=== PATIENT | female | born 1990 | race African-American/Black ===

== ENCOUNTER 2016-11-26 22:34 | Inpatient (IN) ==
[2016-11-26 23:39] LABS: URINE SOURCE VOIDED
[2016-11-26 23:43] LABS: BILIRUBIN URINE NEGATIVE (NEGATIVE); BLOOD URINE 1+ (NEGATIVE); CLARITY SL. CLOUDY (CLEAR); COLOR YELLOW; GLUCOSE URINE NEGATIVE (NEGATIVE); LEUKOCYTES URINE TRACE (NEGATIVE); NITRITE URINE NEGATIVE (NEGATIVE); PH URINE 6.5; PROTEIN URINE 2+(100 mg/dL) mg/dL (NEGATIVE); UROBILINOGEN URINE 4+(12 mg/dL)
[2016-11-27 00:39] LABS: MANUAL DIFF NEEDED? NO
[2016-11-27 00:43] LABS: BASO% 0.1 % (0.0-0.8); EOS# 0.06 X1000 (0.0-0.7); EOS% 0.6 % (0.0-10.0); HEMATOCRIT 33.5 % (37.0-47.0); HEMOGLOBIN 11.7 g/dL (12.0-16.0); IMM GRAN# 0.07 X1000 (0.0-0.04); IMM GRAN% 0.7 % (0.0-0.5); LYMPH# 0.75 X1000 (1.2-3.4); LYMPH% 7.7 % (20.5-51.1); MCH 29.3 PG (27-31); MCHC 34.9 g/dL (33-37); MCV 83.8 FL (81-99); MONO# 0.82 X1000 (0.11-0.59); MONO% 8.4 % (1.7-9.3); MPV 8.7 FL (7.4-10.4); NEUT% 82.5 % (42.2-75.2); PLT 361 X1000 (130-400)
[2016-11-27 01:04] LABS: AGAP 14; ALBUMIN 3.2 g/dL (3.5-5.0); ALKALINE PHOSPHATASE 108 U/L (32-104); BUN 9 mg/dL (8-22); CALCIUM 8.3 mg/dL (8.8-10.2); CHLORIDE 99 mmol/L (98-107); COSMO 266; GOT 11 U/L (10-30); GPT 5 U/L (10-36); SODIUM 133 mmol/L (136-145); TCO2 21 mmol/L (25-35); TOTAL PROTEIN 6.4 g/dL (6.3-8.3)
[2016-11-27 01:22] LABS: UR AMPHETAMINES QUAL NONE DETECTED (NONE DETECT); UR BARBITUATES QUAL NONE DETECTED (NONE DETECT); UR BENZODIAZEPIN QUAL NONE DETECTED (NONE DETECT); UR CANNABINOIDS QUAL NONE DETECTED (NONE DETECT); UR COCAINE QUAL NONE DETECTED (NONE DETECT); UR MDMA QUAL NONE DETECTED (NONE DETECT); UR METHADONE QUAL NONE DETECTED (NONE DETECT); UR METHAMPHETAMINE QUAL NONE DETECTED (NONE DETECT); UR OPIATES QUAL NONE DETECTED (NONE DETECT); UR OXYCODONE QUAL NONE DETECTED (NONE DETECT); UR PCP QUAL NONE DETECTED (NONE DETECT); UR TCA QUAL NONE DETECTED (NONE DETECT)
[2016-11-27] MEDS ORDERED: LR 1,000 ML IV ONE (02:05)
[2016-11-27] MEDS ORDERED: STADOL IV PRN (02:37)
[2016-11-27] MEDS ORDERED: STADOL IV ONE (02:37)
[2016-11-27] MEDS ORDERED: PEPCID PO ONE (05:24)
[2016-11-27] MEDS: STADOL IV PRN ×5 (08:26→23:33)
[2016-11-27] MEDS: MAALOX PLUS LIQUID PO PRN ×3 (08:30→17:13)
[2016-11-27] MEDS ORDERED: SYNTHROID PO ONE ×2 (09:14→09:30)
[2016-11-27] MEDS: TRANDATE PO SCH ×2 (09:16→20:41)
[2016-11-27] MEDS: LR 1,000 ML IV SCH (19:43)
[2016-11-27] MEDS: DILAUDID PO PRN (19:43)
[2016-11-27 20:07] LABS: MANUAL DIFF NEEDED? NO
[2016-11-27 20:27] LABS: BASO% 0.1 % (0.0-0.8); EOS# 0.02 X1000 (0.0-0.7); EOS% 0.2 % (0.0-10.0); HEMATOCRIT 35.5 % (37.0-47.0); HEMOGLOBIN 12.3 g/dL (12.0-16.0); IMM GRAN# 0.05 X1000 (0.0-0.04); IMM GRAN% 0.5 % (0.0-0.5); LYMPH# 0.67 X1000 (1.2-3.4); LYMPH% 6.4 % (20.5-51.1); MCH 29.3 PG (27-31); MCHC 34.6 g/dL (33-37); MCV 84.5 FL (81-99); MONO# 1.08 X1000 (0.11-0.59); MONO% 10.4 % (1.7-9.3); NEUT% 82.4 % (42.2-75.2); PLT 406 X1000 (130-400)
[2016-11-28] MEDS: STADOL IV PRN ×3 (02:20→07:08)
[2016-11-28 03:34] LABS: PROTEIN CREAT RATIO 0.3; UR CREAT RANDOM 109.6 mg/dL (11-20); UR PROT RANDOM 28.1 mg/dL
[2016-11-28 03:37] LABS: UR PROTEIN 28.5 mg/dL
[2016-11-28 03:45] LABS: UR CREATININE 109.6 mg/dL (11-20); UR CREATININE TOTAL 1315.2 mg/24 (600-1600)
[2016-11-28] MEDS: LR 1,000 ML IV SCH ×3 (04:00→11:58)
[2016-11-28] MEDS: TRANDATE PO SCH ×2 (08:35→21:06)
[2016-11-28] MEDS: SYNTHROID PO SCH ×2 (08:35)
[2016-11-28] MEDS ORDERED: REGLAN PO ONE (09:40)
[2016-11-28] MEDS ORDERED: LR 1,000 ML IV SCH (09:40)
[2016-11-28] MEDS ORDERED: AMPICILLIN 2 GM/NS 2 GM/100 ML IVPB IV ONE (09:43)
[2016-11-28] MEDS ORDERED: SODIUM CHLORIDE 0.9% INJ ONE (09:50)
[2016-11-28] MEDS ORDERED: FENTANYL-BUPIV-NS 2 MCG-0.1% 200 ML EPIDURAL PRN (09:51)
[2016-11-28] MEDS ORDERED: XYLOCAINE-MPF 1% 5 ML ONE (09:53)
[2016-11-28] MEDS ORDERED: FENTANYL-BUPIV-NS 2 MCG-0.1% 200 ML ONE (09:56)
[2016-11-28] MEDS ORDERED: XYLOCAINE-MPF 1% INJ ONE (10:00)
[2016-11-28] MEDS ORDERED: AMPICILLIN 1 GM/NS 1 GM/50 ML IVPB IV SCH (13:00)
[2016-11-28] MEDS ORDERED: ZOFRAN ONE (13:19)
[2016-11-28] MEDS ORDERED: SENSORCAINE-MPF 0.5%/EPI 1:200,000 ONE ×2 (13:19→14:43)
[2016-11-28] MEDS ORDERED: NESACAINE-MPF 3% ONE (13:19)
[2016-11-28] MEDS ORDERED: DURAMORPH ONE (13:19)
[2016-11-28] MEDS ORDERED: BICITRA PO ONE (13:30)
[2016-11-28] MEDS ORDERED: PEPCID IV ONE (13:30)
[2016-11-28] MEDS ORDERED: VERSED ONE (14:43)
[2016-11-28] MEDS ORDERED: PITOCIN ONE (14:43)
--- NOTE | 2016-11-28 14:44 | HISTORY AND PHYSICAL ---
CHIEF COMPLAINT: Abdominal pain. HISTORY OF PRESENT ILLNESS: This is a 26-year-old, with intrauterine at 35+ 4 weeks by first-trimester ultrasound, EDC 12/28/2016 who presented to [place] with complaints abdominal pain. The patient was placed on continuous electronic monitoring and contractions were negative at time of admission. Patient is found to be closed, thick and high at that time. Blood pressure is however noted to be elevated with values as high as systolic of 190s , multiple severe range values were noted greater than 4 hours apart. The patient denies headaches, vision changes, right upper quadrant pain or shortness of breath. Twenty-four urine was initiated on admission as well as routine labs which were within normal limits for with the exception of 24 hour urine revealing proteinuria at 342mg. Patient's care has been complicated by hypothyroidism as well as a fibroid uterus which progressed throughout . The patient has missed a number of return OB visits with her last visit at 28 weeks on October 07. Ultrasound performed on August 31 revealed anterior fibroid measuring 17.1 x 9.8 x 9.7 cm with 2 additional fibroids noted to be 4.8 cm and 2.3 cm. Patient has good movement. No loss of fluid. No vaginal bleeding. BPP performed by myself yesterday evening was 8 out of 8 in less than 5 minutes. OBSTETRICAL HISTORY: G1 current. FORKLIFT PICKER HISTORY: Denies sexually transmitted infections or abnormal Paps. PAST MEDICAL HISTORY: Significant for hyperthyroidism with subsequent thyroidectomy and postoperative hypothyroidism. The patient denies history of chronic hypertension. PAST SURGICAL HISTORY: Significant for breast reduction as well as thyroidectomy and left knee surgery. MEDICATIONS: Synthroid 175 mcg daily and vitamins. ALLERGIES: No known drug allergies. SOCIAL: Past tobacco user however quit when she found out she was . Denies alcohol or illicit drug use. FAMILY HISTORY: Significant for breast cancer in a paternal aunt. Diabetes in both her mother and father. Hypertension in her mother and father. REVIEW OF SYSTEMS: Otherwise negative. PHYSICAL EXAMINATION: GENERAL: Well-developed, well-nourished, female, in no acute distress. HEENT: Pupils equal, round, react to light. Extraocular muscle intact. CHEST: Clear to auscultation bilaterally. CV: Regular rate and rhythm. No murmurs, rubs, or gallops. ABDOMEN: Soft, nontender. Palpable large fibroid in the left anterior uterus. EXTREMITIES: No clubbing, cyanosis, or edema. SKIN: No focal lesions. NEURO: No focal deficits. DTRs 2+. ASSESSMENT AND PLAN: 1. Intrauterine at 35+ 4 weeks. 2. Severe preeclampsia, remote from delivery. 3. Fibroid uterus measuring 17.1 x 9.8 x 9.7 cm as well as a 4.8 and 2.3 cm fibroid. 4. Hypothyroidism. 5. Limited care. 6. GBS unknown. The patient was counseled that, given gestational age greater than 34 weeks, delivery was recommended secondary to severe preeclampsia. Given size of fibroid and concern for uterine atony/ hemorrhage with vaginal delivery as well as the possibility of labor dystocia. The patient given the option of a primary low transverse section. The risks of low transverse section including bleeding, infection, injury to bowel, bladder were discussed along with the potential risk of placental abnormalities in subsequent pregnancies. Patient counseled regarding the possibility of hysterectomy if blood loss cannot be controlled at time of delivery. The patient agreed with the above stated risks and she would like to proceed forward with a section. We will have blood products on standby. We will initiate GBS stroke prophylaxis given state. cc: Jose Cruz Bass MD MTDPresley
[2016-11-28] MEDS ORDERED: HYDROXYZINE IM PRN (14:56)
[2016-11-28] MEDS ORDERED: HYDROXYZINE PO PRN (14:56)
[2016-11-28] MEDS ORDERED: PITOCIN IM PRN (14:56)
[2016-11-28] MEDS ORDERED: BOOSTRIX VACCINE IM ONE (14:56)
[2016-11-28] MEDS ORDERED: PITOCIN 20 UNITS/LR 20 UNITS/1,000 ML IV.SOLN IV ONE (14:56)
[2016-11-28] MEDS ORDERED: DULCOLAX PR PRN (14:56)
[2016-11-28] MEDS ORDERED: PHENERGAN IM PRN (14:56)
[2016-11-28] MEDS ORDERED: AMBIEN PO PRN (14:56)
[2016-11-28] MEDS ORDERED: CYTOTEC PO PRN (14:56)
[2016-11-28] MEDS ORDERED: MYLICON PO PRN (14:56)
[2016-11-28] MEDS ORDERED: M-M-R II VACCINE SUBQ ONE (14:56)
[2016-11-28 14:58] LABS: SAMPLE BLOOD; pH(98.6) 7.21 (7.35-7.45)
[2016-11-28 14:59] LABS: ALLEN TEST NO; BLOOD TYPE CORD BLOOD; DRAW SITE UMBILICAL; MODALITY ROOM AIR
[2016-11-28 15:00] LABS: PCO2(98.6) 66 mmHg (35-45); PO2(98.6) 8 mmHg (60-100)
[2016-11-28] MEDS ORDERED: PITOCIN 10 UNITS/LR 10 UNIT/1,000 ML IV.SOLN IV SCH (15:00)
--- NOTE | 2016-11-28 16:15 | OPERATIVE NOTE ---
PROCEDURE DATE: 11/28/2016 PREOPERATIVE DIAGNOSIS: Intrauterine at 35+ 4 weeks, severe preeclampsia, fibroid uterus, hyperthyroidism, threatened labor. POSTOPERATIVE DIAGNOSIS: 1. Intrauterine at 35+ 4 weeks, severe preeclampsia, fibroid uterus, hyperthyroidism, threatened labor. 2. Degenerating uterine fibroid. 3. Ascites. PROCEDURE: Primary low transverse section (vertical skin incision). SURGEONS: Jose Cruz Bass MD RANGE MECHANIC: Jarred Brown MD ANESTHESIA: Galvin. FINDINGS: Fibroid uterus with fundal, pedunculated fibroid (degenerating), ascites (presumably from severe preeclampsia versus degenerating fibroid), normal ovaries and bilateral fallopian tubes. COMPLICATIONS: None apparent. ESTIMATED BLOOD LOSS: 800 mL. SPECIMENS REMOVED: Placenta, cord blood, umbilical cord segment for cord gases. OPERATIVE COURSE: After the patient was identified and consents reviewed, patient was placed on the operative table in a dorsal supine position with a leftward tilt. Abdomen was prepped and draped in normal sterile fashion. Epidural anesthesia was tested using Allis clamp. A vertical midline incision was made starting below the umbilicus and carried through the underlying layer of fascia. This was extended superior and inferiorly in both directions using curved Geronimo scissors. The peritoneum was identified and entered bluntly. At this time a significant amount of ascites was noted, presumably from severe preeclampsia versus degenerating uterine fibroid. The uterus was grossly examined and the patient's largest fibroid was noted to be pedunculated at the uterine fundus and appeared to be degenerating. There are no fibroids at the lower uterine segment. A low transverse hysterotomy was made. Membranes were ruptured. Clear fluid was noted. Infant found to be in a cephalic presentation. Infant delivered atraumatically. Nose and mouth were bulb suctioned. Delayed cord clamping x1 minute was performed. Cord was clamped and cut. Infant handed off to the awaiting pediatric team. Cord blood was then obtained and sent for cord gases. Placenta was then manually extracted. The uterus was then cleared of all clots and debris. Hysterotomy was repaired with 0 chromic in a running, locked fashion, single-layer. Adequate hemostasis noted at the hysterotomy site. Bilateral fallopian tubes and ovaries were found to be normal. The peritoneum was then reapproximated using zero chromic. Fascia was closed with 0 Vicryl in a running fashion. Subcutaneous tissues closed with plain gut suture and the skin was closed with bernice. The patient tolerated the procedure well. She was taken to the recovery room afterwards in stable condition. cc: Jose Cruz Bass MD
[2016-11-28] MEDS ORDERED: NORCO-5 PO PRN (16:21)
[2016-11-28] MEDS ORDERED: NARCAN INJ PRN (16:21)
[2016-11-28] MEDS ORDERED: ZOFRAN IV PRN ×2 (16:21)
[2016-11-28] MEDS ORDERED: ZOFRAN ODT PO PRN (16:21)
[2016-11-28] MEDS ORDERED: NORCO-10 PO PRN (16:22)
[2016-11-28] MEDS ORDERED: TORADOL IV SCH (16:30)
[2016-11-28] MEDS: BENADRYL IV PRN ×2 (20:42→20:45)
[2016-11-28] MEDS: MYLICON PO SCH (20:42)
[2016-11-28] MEDS: PERICOLACE PO SCH (20:42)
[2016-11-28] MEDS: TORADOL IV SCH (23:20)
[2016-11-29] MEDS: TORADOL IV SCH ×2 (05:00→11:05)
[2016-11-29] MEDS: BENADRYL IV PRN (06:07)
[2016-11-29] MEDS: PERCOCET-10 PO PRN ×3 (06:12→18:09)
[2016-11-29 06:30] LABS: HEMATOCRIT 29.8 % (37.0-47.0); HEMOGLOBIN 9.9 g/dL (12.0-16.0); MCH 28.9 PG (27-31); MCHC 33.2 g/dL (33-37); MCV 87.1 FL (81-99); MPV 9.3 FL (7.4-10.4); RBC 3.42 XMIL (4.2-5.4)
[2016-11-29] MEDS: SYNTHROID PO SCH ×2 (08:12)
[2016-11-29] MEDS: MYLICON PO SCH ×5 (08:17→17:45)
[2016-11-29] MEDS: TRANDATE PO SCH ×2 (10:05→21:12)
[2016-11-29] MEDS ORDERED: LR 1,000 ML IV SCH (14:56)
[2016-11-29] MEDS: MOTRIN PO PRN (18:09)
[2016-11-29] MEDS: DILAUDID PO PRN (20:06)
[2016-11-29] MEDS: DILAUDID IV PRN (21:10)
[2016-11-30] MEDS: DILAUDID IV PRN ×3 (00:15→07:13)
[2016-11-30 01:45] LABS: MANUAL DIFF NEEDED? NO
[2016-11-30 02:00] LABS: BASO% 0.1 % (0.0-0.8); HEMOGLOBIN 9.9 g/dL (12.0-16.0); IMM GRAN# 0.04 X1000 (0.0-0.04); IMM GRAN% 0.4 % (0.0-0.5); LYMPH# 1.32 X1000 (1.2-3.4); LYMPH% 12.8 % (20.5-51.1); MCH 28.6 PG (27-31); MCV 86.7 FL (81-99); MONO# 1.16 X1000 (0.11-0.59); MONO% 11.3 % (1.7-9.3); MPV 8.7 FL (7.4-10.4); NEUT% 74.4 % (42.2-75.2); PLT 338 X1000 (130-400); RBC 3.46 XMIL (4.2-5.4)
[2016-11-30 03:04] LABS: AGAP 8; ALBUMIN 2.2 g/dL (3.5-5.0); ALKALINE PHOSPHATASE 91 U/L (32-104); BUN 9 mg/dL (8-22); CALCIUM 8.2 mg/dL (8.8-10.2); CHLORIDE 98 mmol/L (98-107); COSMO 259; GOT 14 U/L (10-30); GPT 5 U/L (10-36); POTASSIUM 3.3 mmol/L (3.5-5.1); SODIUM 130 mmol/L (136-145); TCO2 25 mmol/L (25-35); TOTAL BILIRUBIN < 0.15 mg/dL (0.20-1.00); TOTAL PROTEIN 5.2 g/dL (6.3-8.3)
[2016-11-30] MEDS: PERCOCET-10 PO PRN ×3 (07:16→23:40)
[2016-11-30] MEDS: MOTRIN PO PRN ×2 (07:16→18:15)
[2016-11-30] MEDS: SYNTHROID PO SCH ×2 (07:39)
[2016-11-30] MEDS ORDERED: KLOR-CON PO SCH (09:00)
[2016-11-30] MEDS: TRANDATE PO SCH ×2 (09:39→21:05)
[2016-11-30] MEDS: MYLICON PO SCH ×3 (09:40→21:06)
--- NOTE | 2016-11-30 10:20 | Diag Imaging Result Document ---
PROCEDURE NAME: ABDOMEN/PELVIS W/CONTRAST - 11/29/2016 CT ABDOMEN AND PELVIS WITH CONTRAST: Exam performed with oral and intravenous contrast. A dose- reduction protocol was used. COMPARISON: No comparison exam. FINDINGS: The patient, by history, is one day status post section. The uterus is enlarged, compatible with uterus. There is a large heterogeneous mass which extends from the left anterior pelvis to the [id number] abdomen and pelvis. The mass is primarily low density but is heterogeneous. The mass measures approximately 13.9 cm in superior inferior dimension x 13.9 cm in AP dimension. The mass varies in transverse dimension up to 13.9 cm. The mass displaces the main portion of the uterus anteriorly and to the right. This may represent a large adnexal mass arising from the left ovary. Large pedunculated uterine fibroid with necrosis may also be a consideration. Large hematoma may also be a consideration, although the external margins of the mass are relatively smooth. There is ill-defined low density at the anterior uterine fundus which may be postsurgical or may relate to uterine fibroid. There is a small amount of free fluid in the abdomen and pelvis. There is a small amount of free air which is likely postsurgical. There is a small amount of air in the endometrial canal which is likely postsurgical. The liver is somewhat prominent in size but demonstrates homogeneous enhancement. The spleen appears upper range of normal in size and demonstrates homogeneous enhancement. The adrenal glands and pancreas are unremarkable. There are no calcified gallstones seen. The bilateral kidneys enhance homogeneously. There is no hydronephrosis. There are nonspecific small retroperitoneal lymph nodes. There is no evidence of bowel obstruction. There is some air in the spinal canal and paraspinal soft tissues which likely relates to recent epidural injection. IMPRESSION: 1. Large (approximately 13.9 x 13.9 x 13.9 cm) heterogeneous, primarily low density mass which extends from the left pelvis to the [id number] abdomen. The mass displaces the uterus anteriorly and to the right. This may represent a large mass arising from the left adnexa. Other considerations may include large necrotic pedunculated uterine fibroid and large hematoma. Correlation with clinical evaluation is recommended. 2. Ill-defined low density in the anterior uterine fundus which may be postsurgical or may relate to uterine fibroid. 3. Small amount of free fluid in abdomen and pelvis. Small amount of free air which is likely postsurgical. Small amount of air in the endometrial canal which is likely postsurgical. A [facility] physician provided preliminary results at 12:45 a.m. on 11/30/2016. MTDD
[2016-11-30] MEDS: PERCOCET-5 PO PRN ×2 (14:43→14:44)
[2016-11-30] MEDS: PERICOLACE PO SCH (18:14)
[2016-12-01] MEDS: MOTRIN PO PRN (04:12)
[2016-12-01] MEDS: PERCOCET-10 PO PRN (04:12)
[2016-12-01] MEDS: PERICOLACE PO SCH (05:40)
[2016-12-01] MEDS: SYNTHROID PO SCH ×2 (07:32)
[2016-12-01 07:38] VITALS: BP 142/87
[2016-12-01] MEDS: MYLICON PO SCH (07:53)
[2016-12-01] MEDS: TRANDATE PO SCH (07:57)
--- NOTE | 2016-12-01 16:51 | DISCHARGE SUMMARY ---
ADMISSION DATE: 11/27/2016 DISCHARGE DATE: 12/01/2016 PREOPERATIVE DIAGNOSES: 1. Intrauterine at 35 and 4, severe preeclampsia. 2. Uterine fibroids. 3. Hypothyroidism. 4. Limited care and unknown GBS status. DISCHARGE DIAGNOSES: 1. Severe preeclampsia, resolved. 2. Uterine fibroids. 3. Hypothyroidism. 4. Limited care and unknown GBS status. CONDITION: Stable. DIET: As tolerated. ACTIVITY: Routine postoperative instructions. MEDICATIONS: Percocet 5 mg 1-2 q.3-4 hours as needed for pain. Motrin 3 times a day as needed. She has been started on some labetalol. She is to continue that. She is to continue her Synthroid. DISCHARGE INSTRUCTIONS: She is to follow up in [address] Bass to remove bernice. HOSPITAL COURSE: Please refer to Ms. Sloan records, H and P and operative note. Ms. Sloan underwent a delivery on Wednesday. She has done well afterwards. CT scan was done Wednesday and what appeared to be a pedunculated fibroid which was noted at the time of surgery was the only thing noted on the CT. She is ambulating tolerating p.o., and desiring discharge. PHYSICAL EXAMINATION: Vital Signs: Blood pressure 142/87, temperature 95.8 degrees, pulse 71, respiration 18. She is in no distress. Neck: Supple. Lungs: Clear. Heart: Regular sinus rhythm. Abdomen: Distended. Uterus is firm. Incision is dry and intact in the vertical incision. Extremities: There is +2 lower extremity edema. LABORATORY VALUES: Last done yesterday, hemoglobin and hematocrit of 9/30 which was stable, platelets 338,000. Chemistries are normal, liver function tests. DISPOSITION: We will DC with the above instructions. cc: MD Jose Cruz Vogel MD
== END 2016-12-01 10:30 | disposition home or self-care (01) ==
LOC: OPLD 22:34 → P.LD 22:44
PROVIDERS: ADMIT Obstetrics & Gynecology; ATTEND Obstetrics & Gynecology

== ENCOUNTER 2016-12-07 11:35 | Inpatient (IN) ==
[2016-12-07] MEDS ORDERED: ZOFRAN ODT PO PRN (13:01)
[2016-12-07 13:26] LABS: MANUAL DIFF NEEDED? NO
[2016-12-07 13:28] LABS: BASO% 0.3 % (0.0-0.8); EOS# 0.14 X1000 (0.0-0.7); EOS% 2.1 % (0.0-10.0); HEMATOCRIT 34.8 % (37.0-47.0); HEMOGLOBIN 11.6 g/dL (12.0-16.0); IMM GRAN# 0.13 X1000 (0.0-0.04); LYMPH# 0.85 X1000 (1.2-3.4); LYMPH% 12.9 % (20.5-51.1); MCH 28.3 PG (27-31); MCHC 33.3 g/dL (33-37); MCV 84.9 FL (81-99); MONO# 0.85 X1000 (0.11-0.59); MONO% 12.9 % (1.7-9.3); MPV 7.8 FL (7.4-10.4); NEUT% 69.8 % (42.2-75.2); PLT 415 X1000 (130-400)
[2016-12-07 13:43] LABS: AGAP 12; ALBUMIN 3.3 g/dL (3.5-5.0); ALKALINE PHOSPHATASE 96 U/L (32-104); BUN 13 mg/dL (8-22); CALCIUM 8.5 mg/dL (8.8-10.2); CHLORIDE 101 mmol/L (98-107); COSMO 274; GOT 14 U/L (10-30); GPT 9 U/L (10-36); POTASSIUM 3.7 mmol/L (3.5-5.1); SODIUM 137 mmol/L (136-145); TCO2 24 mmol/L (25-35); TOTAL PROTEIN 6.7 g/dL (6.3-8.3)
--- NOTE | 2016-12-07 14:10 | Diag Imaging Result Document ---
PROCEDURE NAME: CT ABD/PELVIS W/ IV CONT ONLY - 12/07/2016 CT ABDOMEN AND PELVIS WITH INTRAVENOUS CONTRAST: A CT dose reduction protocol was used. COMPARISON: 11/29/2016. FINDINGS: Stable large heterogeneously enhancing uterine masses. The postsurgical free air has resolved. The ascites has somewhat redistributed into the pelvis. Otherwise, no new mass or fluid collection. No bowel obstruction or inflammation. The ascites may be slightly decreased since the prior exam. IMPRESSION: Little change from prior. [facility]
[2016-12-07] MEDS: LR 1,000 ML IV SCH (14:16)
[2016-12-07] MEDS: ZOSYN 3.375 GM/NS 3.375 GM/50 ML IVPB IV SCH ×2 (14:16→18:14)
[2016-12-07] MEDS: VANCOMYCIN 1 GM/NS 1 GM/250 ML IVPB IV SCH (15:07)
[2016-12-07] MEDS: PERCOCET-10 PO PRN ×2 (16:26→20:19)
--- NOTE | 2016-12-07 17:13 | HISTORY AND PHYSICAL ---
CHIEF COMPLAINT: Wound infection. Direct admit from the office. HISTORY OF PRESENT ILLNESS: Patient is a 26-year-old, G1, P0-1-0-1, here today for wound infection, admission for IV antibiotics. She had a primary on November 28, [address] Bass, assisted by Dr. Brown due to worsening PIH/severe preeclampsia, contractions, and large uterine fibroid. The patient had a vertical incision due to the large fibroids. She states that her incision has been irritating the entire time but it started stinging and burning and has turned red. She reports going to the ER on Wednesday and they gave her a prescription for "an antibiotic that starts with a C" but she did not have it filled because of the holiday. She denies fever and chills. Incision is draining. She denies any vaginal discharge. Lochia is present and small. She is bottle feeding her baby. She is taking her labetalol 200 mg b.i.d. as prescribed for her -induced hypertension. Other than the pain associated with this infection, she does not have any other complaints. PAST MEDICAL HISTORY: 1. Significant for large uterine fibroid, up to 17 cm in size. 2. Hypothyroidism following thyroidectomy that was used to treat hyperthyroidism. 3. -induced hypertension, delivered. PAST SURGICAL HISTORY: 1. Breast reduction in 2009. 2. Thyroidectomy November 2015. 3. Left knee surgery. She had a benign tumor removed as a teenager. 4. x1. OB HISTORY: On November 28, 2016 she had a 35 week 4 day primary low uterine transverse by Dr. Bass, assisted by Dr. Brown due to preeclampsia, contractions, and fibroids via vertical skin incision, as noted above. 5# boy ALLERGIES: No known drug allergies. CURRENT MEDICATIONS: 1. Levothyroxine sodium 175 mcg daily. 2. Labetalol 200 mg p.o. b.i.d. 3. Percocet 5. 4. Ibuprofen 800. 5. Galina-Colace. 6. C-Misael vitamin. SOCIAL HISTORY: She lives with her parents. She is currently unemployed, not looking for work. Tobacco use, she formerly smoked 1-2 Black and Milds per day for 4-5 years but she quit when she found out she was . She denies alcohol or drug use. FAMILY HISTORY: Significant for hypertension in mother and her father. Breast cancer in paternal aunt with unsure age. Diabetes in mother and father. Fibromyalgia in mother. MAKE UP OPERATOR HISTORY: Significant for Pap smear June 21, 2016 that is negative per transferred records. REVIEW OF SYSTEMS: Negative for fever or chills.Skin: Positive for drainage and tenderness and redness of wound. HEENT: No blurry vision. Respiratory: No difficulty breathing. Breasts: Denies breast pain. Cardiovascular: No chest pain. Gastrointestinal : Denies constipation, nausea, vomiting, or diarrhea. Genitourinary: Denies discharge. PHYSICAL EXAMINATION: VITAL SIGNS: Blood pressure 134/90, temperature 98.1 degrees. GENERAL: The patient is alert and oriented, in no acute distress, and well nourished. SKIN: Overall no rashes. Normal color and texture with the exception of wound as noted below. HEENT: Normocephalic, atraumatic. CHEST: Clear to auscultation bilaterally. CARDIOVASCULAR: Regular rate and rhythm. ABDOMEN: Positive bowel sounds. She does have a vertical skin incision with approximately 3 cm of erythema/induration along the mid to superior aspect of the vertical incision. Along the same area she has about 2 cm of the incision that does not probe deeply but does have greenish colored pus coming out of it. Four bernice were removed. She is very tender to touch but not out of proportion to exam. : Did not examine. PERIPHERAL VASCULAR: No current edema. NEUROLOGIC: Alert and oriented x3 with appropriate mood and affect. MUSCULOSKELETAL: Normal gait and station. ASSESSMENT AND PLAN: This is a 26-year-old, G1, P0-1-0-1, with postoperative wound infection. Her wound was cultured in the office today. Plan to admit for observation. We will get a CT scan and start Zosyn and vancomycin. Check her CBC with differential and follow for improvement. cc: Teresa Santos MD MTDD
[2016-12-07] MEDS ORDERED: DULCOLAX PR ONE (19:26)
[2016-12-07] MEDS: TRANDATE PO SCH (20:19)
[2016-12-07] MEDS: MOTRIN PO PRN (20:19)
[2016-12-07] MEDS: PERICOLACE PO SCH (20:20)
[2016-12-08] MEDS: PERCOCET-10 PO PRN ×6 (00:04→20:44)
[2016-12-08] MEDS: LR 1,000 ML IV SCH ×4 (00:04→22:35)
[2016-12-08] MEDS: ZOSYN 3.375 GM/NS 3.375 GM/50 ML IVPB IV SCH ×4 (01:07→18:23)
[2016-12-08] MEDS: VANCOMYCIN 1 GM/NS 1 GM/250 ML IVPB IV SCH ×2 (01:39→14:37)
[2016-12-08] MEDS: MOTRIN PO PRN ×3 (04:11→21:42)
[2016-12-08] MEDS: SYNTHROID PO SCH ×2 (06:13)
[2016-12-08] MEDS: PRECARE PO SCH (08:15)
[2016-12-08] MEDS: PERICOLACE PO SCH ×2 (08:15→20:44)
[2016-12-08] MEDS: TRANDATE PO SCH ×2 (08:15→20:44)
[2016-12-08] MEDS: MIRALAX PO SCH (08:16)
[2016-12-08] MEDS ORDERED: SYNTHROID PO SCH (09:00)
[2016-12-08] MEDS ORDERED: PRECARE PO SCH (09:00)
--- NOTE | 2016-12-08 15:26 | PROGRESS NOTE ---
DATE: 12/08/2016 SUBJECTIVE: Hospital day 2: Antibiotic day 2. Ms. Sloan is without complaints. States the drainage from her incision has decreased. She is tolerating p.o. She is ambulating. OBJECTIVE: Vital Signs: On physical exam, vital signs reveals she remains afebrile at 98.4. Blood pressure is slightly elevated at 140s/90s. Neck: Supple. Lungs: Clear. Heart: Regular sinus rhythm. Abdomen: Distended. Incision has bernice in it. Some dried purulent material at the upper portion of it. Extremities: No cyanosis, clubbing, or edema in her extremities. DISPOSITION: The staple remover is brought in and bernice are removed. There is no separation of the incision noted despite putting pressure on the edges with a sterile Q-tip. It could not go through the incision to the subcutaneous area, so I do not feel there is the dehiscence. Will place Steri-Strips and continue present management. Possible discharge in the morning. cc: MD Teresa Vogel MD
[2016-12-08] MEDS ORDERED: AMBIEN PO ONE (22:46)
[2016-12-09] MEDS: ZOSYN 3.375 GM/NS 3.375 GM/50 ML IVPB IV SCH ×2 (01:11→06:44)
[2016-12-09] MEDS: VANCOMYCIN 1 GM/NS 1 GM/250 ML IVPB IV SCH (02:01)
[2016-12-09] MEDS: PERCOCET-10 PO PRN ×5 (02:49→20:26)
[2016-12-09] MEDS: MOTRIN PO PRN ×2 (05:44→15:48)
[2016-12-09] MEDS: SYNTHROID PO SCH ×2 (06:44)
[2016-12-09] MEDS: MIRALAX PO SCH (08:09)
[2016-12-09] MEDS: PERICOLACE PO SCH ×2 (08:09→20:26)
[2016-12-09] MEDS: PRECARE PO SCH (08:09)
[2016-12-09] MEDS: TRANDATE PO SCH ×2 (08:09→20:26)
[2016-12-09] MEDS: LEVAQUIN PO SCH (08:17)
[2016-12-09] MEDS: DOXYCYCLINE PO SCH ×2 (08:17→20:26)
[2016-12-09] MEDS ORDERED: PRINIVIL PO SCH (09:00)
--- NOTE | 2016-12-09 16:48 | CONSULTATION ---
DATE OF CONSULTATION: 12/09/2016 CONSULTING PHYSICIAN: Teresa Santos. REASON FOR CONSULT: Hypertension. HISTORY OF PRESENT ILLNESS: This is a 26-year-old female with a history of hypothyroid, - induced hypertension, and preeclampsia who delivered on 11/28/2016 via . She was admitted on December 07 for a wound infection from her . This is being followed by Gynecology. On admission blood pressures have been 120s to 190s over the 90s, therefore we have been consulted for hypertension management. PAST MEDICAL HISTORY: 1. Preeclampsia. 2. Hypothyroidism following thyroidectomy due to hyperthyroidism. 3. Status post thyroidectomy. 4. -induced hypertension and preeclampsia, delivered 11/28/2016. PAST SURGICAL HISTORY: 1. Breast reduction in 2009. 2. Thyroidectomy in 2016. 3. Left knee surgery. 4. x1. SOCIAL HISTORY: She lives with her parents. She denies any alcohol, tobacco or illicit drug use. She does state that she smoked for 4 years but she quit when she found out she was . She does live with her parents. ALLERGIES: No known drug allergies. HOME MEDICATIONS: Levothyroxine 175 mcg daily, labetalol 200 mg b.i.d., Percocet 5 as directed, ibuprofen 800 as directed, vitamin. FAMILY HISTORY: Significant for hypertension in mother and father, breast cancer and paternal aunt, diabetes in mother and father. REVIEW OF SYSTEMS: A 14 point review of systems is discussed with patient. She denies chest pain, palpitations, syncope, dizziness, shortness of breath, PND, orthopnea, fever, nausea, vomiting, diarrhea, constipation, black or bloody vomitus, black or bloody stools. PHYSICAL EXAMINATION: General: This is a 26-year-old female who is sitting in the bed, in no distress. Vital Signs: Blood pressure is 162/79, with a heart rate of 85, respirations are 18, temperature is 97.5 degrees oral, with room air saturations of 98%-100%. Cardiovascular: Regular rate and rhythm. S1 and S2 appreciated. Pulmonary: Breath sounds are clear with no increased work of breathing noted. Gastrointestinal: Abdomen is soft, nontender, nondistended with bowel sounds in all 4 quadrants. Vertical incision noted with dressing intact over incision, there is no visible drainage. Abdomen: Soft, a little tender around the incision area, with bowel sounds in all 4 quadrants. Extremities: No clubbing, cyanosis, or edema. Calves are nontender. Pulses are palpable x4. LABORATORY DATA: Labs are from 12/07, WBC was 6.5, with hemoglobin 11.6, hematocrit 34.8, platelets of 415,000. ASSESSMENT AND PLAN: This is a 26-year-old female who presents with hypertension, status post section, with a history of preeclampsia. 1. Hypertension. 2. Wound infection to surgical incision on the abdomen. This is being followed by SEISMOGRAPH OPERATOR. 3. Hypothyroidism. We will continue the patient's labetalol. 4. As the patient is not breast feeding, we will add lisinopril 20 mg daily. 5. Antibiotics per SEISMOGRAPH OPERATOR. 6. We will check a TSH. In the meantime, continue her levothyroxine as ordered. Dictated by JARRED Meehan for Seth Sequeira MD cc: JARRED Meehan MD Rachel A. Acuff, MD
[2016-12-10] MEDS: PERCOCET-10 PO PRN ×3 (00:02→09:11)
[2016-12-10] MEDS: MOTRIN PO PRN ×2 (00:04→08:25)
[2016-12-10] MEDS: SYNTHROID PO SCH ×2 (06:11)
[2016-12-10] MEDS ORDERED: PRINIVIL PO SCH (06:41)
[2016-12-10] MEDS: PERICOLACE PO SCH (08:25)
[2016-12-10] MEDS: DOXYCYCLINE PO SCH (08:25)
[2016-12-10] MEDS: MIRALAX PO SCH (08:25)
[2016-12-10] MEDS: TRANDATE PO SCH (08:25)
[2016-12-10] MEDS: PRECARE PO SCH (08:25)
[2016-12-10] MEDS: LEVAQUIN PO SCH (08:25)
[2016-12-10 11:01] VITALS: BP 137/91
[2016-12-11] MEDS ORDERED: SYNTHROID PO SCH (07:00)
--- NOTE | 2016-12-11 07:55 | DISCHARGE SUMMARY ---
ADMISSION DATE: 12/08/2016 DISCHARGE DATE: 12/10/2016 PHYSICIAN: Jarred Brown MD CHIEF DIAGNOSIS: Postop wound infection. SUMMARY: Ms. Sloan is a 26-year-old, 1, para 1, who underwent a primary section on November 28 due to a large uterine leiomyomata. Her postoperative course was unremarkable and she was discharged. She presented on the day of admission with home fevers and chills. The incision showed signs of infection and she was admitted to the hospital. She was begun on IV antibiotics. Due to hypertension and elevated TSH, the hospitalist service was consulted. The her final culture and sensitivity did show Staph aureus and also an Enterobacter faecalis. It was sensitive to the antibiotics that she has been on. She is feeling well today. Her blood pressures are better and she is ready for discharge. We will continue her on Levaquin and doxycycline. She will continue labetalol when her dose of Synthroid has been increased. We will need to see her back in the office in a week. She will call sooner if there are any problems. cc: MD Teresa Cantu MD
--- NOTE | 2016-12-11 11:47 | DISCHARGE SUMMARY ---
ADMISSION DATE: 12/08/2016 DISCHARGE DATE: 12/10/2016 OBSTETRICAL AND GYNECOLOGICAL: Teresa Santos MD DIAGNOSES: 1. Hypertension/preeclampsia. 2. Wound infection of surgical incision on the abdomen being followed by Obstetrical and Gynecological. 3. Hypothyroid. 4. Hypertension. HOSPITAL COURSE: Ms. Sloan was admitted for hypertension being 10 days status post a , as well as a wound infection from the incision. She was running blood pressures up to 190 systolic over 90-100 diastolic. She she did experience preeclampsia and -induced hypertension during this . Blood pressures were controlled with labetalol 200 mg b.i.d., as well as lisinopril 40 daily. Of note, the patient is not . She is status post thyroidectomy. She was found to have a TSH of 18.2. She was previously on the levothyroxine 175 mcg daily. She has been increased to 200 mcg daily. She did receive IV antibiotics per TERRAZZO INSTALLER. She has been transitioned to Levaquin 500 daily and doxycycline 100 b.i.d. She will continue these for 10 days. Cardiovascular: Regular rate and rhythm. S1 and S2 appreciated. Pulmonary: Breath sounds are clear. No increased work of breathing noted. Gastrointestinal: Abdomen is soft, nondistended, with bowel sounds in all 4 quadrants. She is tender in the lower abdomen being status post as well as having a wound infection. She does have a dressing that is dry and intact to her incision. She states that she has scant drainage which she noticed after showering. MEDICATIONS: Doxycycline 100 mg p.o. b.i.d. for 10 days, Levaquin 500 mg daily for 10 days. labetalol 200 mg p.o. b.i.d., Synthroid 200 mcg daily, lisinopril 40 mg daily, Percocet 10 q.4 hours p.r.n., MiraLAX 17 g daily, vitamins daily. FOLLOWUP: She states that she has been assigned to Cynthia Marley or Sharon Price at the [facility] from [facility]. She has been instructed she is to have an appointment there 1 day next week. At that time, she needs to have a TSH drawn. She is to follow up with Dr. Santos as instructed. DISCHARGE ACTIVITY: As tolerated. DISCHARGE DIET: Regular. WOUND CARE: She needs to shower, daily clean the wound with soap and water and cover it with dry gauze and paper. DISCHARGE INSTRUCTIONS: She has been instructed to call her TERRAZZO INSTALLER for temperature greater than 101, any nausea, vomiting, any recurring redness, tenderness, drainage to this incision area or for any questions or concerns that she may have. She is being discharged home in stable condition with family members. She has been instructed that she is to call her prescribing physician if she has any refills on any narcotics. Dictated by JARRED Meehan for Seth Sequeira MD cc: JARRED Meehan MD Rachel A. Acuff, MD
== END 2016-12-10 12:45 | disposition home or self-care (01) ==
LOC: P.DIRADM → P.MEDSURG 11:35
PROVIDERS: ADMIT Obstetrics & Gynecology; ATTEND Obstetrics & Gynecology

== ENCOUNTER 2017-03-03 07:00 | Inpatient (IN) ==
[2017-03-09 12:03] LABS: MANUAL DIFF NEEDED? NO; URINE SOURCE CLEAN CATCH
[2017-03-09 12:09] LABS: BASO% 0.2 % (0.0-0.8); EOS# 0.11 X1000 (0.0-0.7); EOS% 2.2 % (0.0-10.0); HEMATOCRIT 34.4 % (37.0-47.0); HEMOGLOBIN 11.5 g/dL (12.0-16.0); IMM GRAN# 0.01 X1000 (0.0-0.04); IMM GRAN% 0.2 % (0.0-0.5); LYMPH# 1.48 X1000 (1.2-3.4); MCH 26.6 PG (27-31); MCHC 33.4 g/dL (33-37); MCV 79.4 FL (81-99); MONO# 0.37 X1000 (0.11-0.59); MONO% 7.5 % (1.7-9.3); MPV 8.6 FL (7.4-10.4); NEUT% 59.9 % (42.2-75.2); PLT 356 X1000 (130-400); RBC 4.33 XMIL (4.2-5.4)
[2017-03-09 13:05] LABS: BILIRUBIN URINE NEGATIVE (NEGATIVE); BLOOD URINE NEGATIVE (NEGATIVE); CLARITY CLEAR (CLEAR); COLOR YELLOW; GLUCOSE URINE NEGATIVE (NEGATIVE); LEUKOCYTES URINE TRACE (NEGATIVE); NITRITE URINE NEGATIVE (NEGATIVE); PROTEIN URINE NEGATIVE (NEGATIVE); URINE MICROSCOPIC NEEDED? YES; UROBILINOGEN URINE NORMAL
[2017-03-09 13:06] LABS: URINE CAST NONE SEEN /LPF; URINE CRYSTAL NONE SEEN /HPF; URINE EPITHELIAL CELLS <10 /HPF (<10); URINE RBC <10 /HPF (<10); URINE WBC <10 /HPF (<10)
--- NOTE | 2017-03-09 15:59 | HISTORY AND PHYSICAL ---
ADMITTING DIAGNOSIS: Uterine leiomyomata. SUMMARY: Haile Sloan is a 26-year-old, 1, para 1, who has uterine leiomyomata above her umbilicus. She had a earlier this year due to the fibroids. She continues to have pelvic pain and heavy bleeding. She is being admitted for a hysterectomy. We have discussed the risks of surgery including pain, bleeding, infection, bowel or bladder injury, anesthesia complications, and possible need for blood transfusion. Alternatives to this surgery were also discussed. PAST MEDICAL HISTORY: Patient has had 1 that ended in a section due to the leiomyomata. She has history of hyperthyroidism and had a thyroidectomy. She has had breast reduction before. She also has had hypertension. After her she was admitted for postoperative infection. ALLERGIES: None. CURRENT MEDICATIONS: Include levothyroxine, labetalol, Percocet, and ibuprofen. PHYSICAL EXAMINATION: VITAL SIGNS: Her weight is 183. Blood pressure is 118/84. CARDIOVASCULAR: Regular rate and rhythm without murmurs, rubs, or gallops. PULMONARY: Clear. BREASTS: No masses. There is well healed reduction scars. There is a palpable mass above her umbilicus. PELVIC EXAMINATION: Confirms pelvic mass. Recent Pap smear was read as normal. EXTREMITIES: No clubbing, edema or cyanosis. IMPRESSION: Large symptomatic uterine leiomyomata. PLAN: We will proceed to proceed with abdominal hysterectomy. Risks and benefits, possible complications, and reasonable expectations have been discussed. cc: Jarred Brown MD
[2017-03-10] MEDS ORDERED: LR 1,000 ML IV SCH ×3 (06:00→10:24)
[2017-03-10] MEDS ORDERED: KEFZOL 1 GM/D5W 1 GM/50 ML IVPB IV ONE (06:00)
[2017-03-10] MEDS ORDERED: DIPRIVAN 1% ONE (07:31)
[2017-03-10] MEDS ORDERED: ZEMURON ONE (07:33)
[2017-03-10] MEDS ORDERED: QUELICIN (DOSE) ONE (07:33)
[2017-03-10] MEDS ORDERED: KEFZOL 1 GM/D5W 1 GM/50 ML IVPB ONE (08:07)
[2017-03-10] MEDS ORDERED: PEPCID ONE (08:07)
[2017-03-10] MEDS ORDERED: SODIUM CHLORIDE 0.9% INJ ONE (08:30)
[2017-03-10] MEDS ORDERED: PEPCID IV ONE (08:30)
[2017-03-10] MEDS ORDERED: XYLOCAINE-MPF 2% ONE (08:34)
[2017-03-10] MEDS ORDERED: FENTANYL ONE (08:39)
[2017-03-10] MEDS ORDERED: LABETALOL (DOSE) ONE (08:56)
[2017-03-10] MEDS ORDERED: ZOFRAN ONE ×2 (08:59→09:17)
[2017-03-10] MEDS ORDERED: DECADRON ONE ×2 (08:59→09:17)
[2017-03-10] MEDS ORDERED: NEOSTIGMINE ONE (09:17)
[2017-03-10] MEDS ORDERED: ROBINUL ONE (09:17)
[2017-03-10 09:29] LABS: URINE SOURCE CATH
[2017-03-10 09:39] LABS: BILIRUBIN URINE NEGATIVE (NEGATIVE); BLOOD URINE NEGATIVE (NEGATIVE); CLARITY CLEAR (CLEAR); COLOR YELLOW; GLUCOSE URINE NEGATIVE (NEGATIVE); LEUKOCYTES URINE NEGATIVE (NEGATIVE); NITRITE URINE NEGATIVE (NEGATIVE); PROTEIN URINE NEGATIVE (NEGATIVE); SP GRAVITY URINE 1.015; UROBILINOGEN URINE NORMAL
[2017-03-10] MEDS ORDERED: TORADOL ONE (09:45)
[2017-03-10 09:56] LABS: URINE CAST NONE SEEN /LPF; URINE CRYSTAL NONE SEEN /HPF; URINE EPITHELIAL CELLS <10 /HPF (<10); URINE RBC <10 /HPF (<10); URINE WBC <10 /HPF (<10)
[2017-03-10] MEDS ORDERED: DILAUDID ONE ×2 (10:00→10:28)
[2017-03-10] MEDS ORDERED: ZOFRAN IV PRN ×2 (10:00→10:24)
[2017-03-10] MEDS ORDERED: NORCO-5 PO PRN (10:00)
[2017-03-10] MEDS ORDERED: FLEET ENEMA PR PRN (10:00)
[2017-03-10] MEDS ORDERED: AMBIEN PO PRN (10:00)
[2017-03-10] MEDS ORDERED: PHENERGAN IM PRN (10:00)
[2017-03-10] MEDS ORDERED: DEMEROL IM PRN (10:00)
[2017-03-10] MEDS ORDERED: LEVSIN-SL SL PRN (10:00)
[2017-03-10] MEDS ORDERED: ZOFRAN ODT PO PRN (10:00)
[2017-03-10] MEDS ORDERED: APRESOLINE ONE (10:00)
[2017-03-10] MEDS ORDERED: DULCOLAX PR PRN (10:00)
[2017-03-10] MEDS ORDERED: SODIUM CHLORIDE 0.9% INJ PRN (10:24)
[2017-03-10] MEDS ORDERED: NARCAN IV PRN (10:24)
[2017-03-10] MEDS ORDERED: PHENERGAN IV PRN (10:24)
[2017-03-10] MEDS ORDERED: DILAUDID PCA VIAL IV PRN (10:24)
[2017-03-10] MEDS ORDERED: PHENERGAN ONE (10:25)
[2017-03-10] MEDS ORDERED: LR 1,000 ML ONE (10:28)
[2017-03-10] MEDS: LR 1,000 ML IV SCH (11:09)
[2017-03-10] MEDS ORDERED: APRESOLINE IV ONE ×2 (11:30)
[2017-03-10] MEDS ORDERED: LABETALOL IV PRN (11:40)
[2017-03-10] MEDS ORDERED: PRINIVIL PO ONE ×2 (13:16→15:27)
[2017-03-10] MEDS ORDERED: LABETALOL IV ONE (14:14)
[2017-03-10] MEDS: MYLICON PO SCH ×4 (14:36→20:25)
[2017-03-10] MEDS: TORADOL IV SCH ×2 (15:19→21:35)
[2017-03-10 15:36] LABS: HEMATOCRIT 34.4 % (37.0-47.0); HEMOGLOBIN 11.6 g/dL (12.0-16.0)
[2017-03-10] MEDS ORDERED: APRESOLINE IV PRN (15:38)
--- NOTE | 2017-03-10 16:08 | OPERATIVE NOTE ---
PROCEDURE DATE: 03/10/2017 SURGEON: Dr. Brown. TELECOMMUNICATIONS CLERK: Padma. ANESTHESIA: General endotracheal. OPERATION PERFORMED: 1. Exploratory laparotomy. 2. Myomectomy. 3. Hysterectomy. PREOPERATIVE DIAGNOSIS: Large symptomatic uterine leiomyomata. POSTOPERATIVE DIAGNOSIS: Large symptomatic uterine leiomyomata. FINDINGS: At exploratory laparotomy, patient had a large pedunculated fibroid at the fundus of the uterus. There was a 2nd smaller fibroid embedded in the body of the uterus. The ovaries were grossly normal. PROCEDURE: The patient was taken back to the operating room and after general endotracheal anesthesia, she was placed in the supine position. The vagina and abdomen were prepped and draped in the usual fashion. A Montano catheter was placed in the urinary bladder. A midline incision was made from above the umbilicus to the symphysis. This incision was taken down to the fascia. The fascia was excised. The peritoneum was entered. The uterus and fibroid were delivered through this incision. A straight clamp was placed across the base of the large pedunculated fibroids after several adhesions were taken down. This pedicle was excised. We then delivered the uterus into the abdomen. The Buck self-retaining retractor was placed. Using the LigaSure device the round ligament on both sides was grasped, cauterized and excised. Continuing with the LigaSure the remainder of the broad ligament was grasped, cauterized and excised. The bladder flap was created. The bladder was dissected off the lower uterine segment. This allowed us to clamp, cauterize, and excise the uterine vessels bilaterally. We then used straight hysterectomy clamps to clamp, excise, and ligate the cardinal and then uterosacral ligaments. There was a lot of distortion of the lower uterine segment and the lower segment was quite lengthy. Once we reached the cervix, curved clamps were placed across the cervix and the cervix and uterus was thus removed. Stitches were placed bilaterally and the cuff was then closed. The pelvic cavity was copiously irrigated. There was a raw area in the sacrum where the fibroids have been sitting. Hemostasis was achieved with electrocautery and then Gelfoam. The pelvic cavity had been irrigated with copious amounts of sterile water. All of the pedicles were found to be hemostatic. All packs and instruments were removed. Initial sponge, instrument, and needle count reported as correct. Blood loss was estimated at 200 mL. We then closed the peritoneum and fascia on block with a Monocryl suture. We then used Vicryl sutures to reapproximate the adipose tissue. We attempted a subcuticular stitch but due to the old scarring we were unsuccessful. We therefore closed the skin with bernice, 4 retention sutures were placed along the length of the incision. Again blood loss estimated 200 mL. There were no complications. Patient was extubated and went to the recovery room in stable condition. cc: Jarred Brown MD
[2017-03-10 16:38] LABS: AGAP 9; ALBUMIN 3.8 g/dL (3.5-5.0); ALKALINE PHOSPHATASE 113 U/L (32-104); BUN 7 mg/dL (8-22); CALCIUM 8.7 mg/dL (8.8-10.2); CHLORIDE 98 mmol/L (98-107); COSMO 265; DIRECT BILIRUBIN < 0.20 mg/dL (0.00-0.20); GOT 11 U/L (10-30); GPT 9 U/L (10-36); POTASSIUM 3.8 mmol/L (3.5-5.1); SODIUM 132 mmol/L (136-145); TCO2 24 mmol/L (25-35); TOTAL BILIRUBIN < 0.15 mg/dL (0.20-1.00); TOTAL PROTEIN 7.5 g/dL (6.3-8.3)
[2017-03-10] MEDS: PERIDEX MT SCH (20:25)
[2017-03-10] MEDS: COLACE PO SCH (20:25)
[2017-03-11] MEDS: TORADOL IV SCH ×2 (03:02→09:55)
[2017-03-11 06:25] LABS: HEMATOCRIT 33.1 % (37.0-47.0); MCH 26.6 PG (27-31); MCHC 33.2 g/dL (33-37); RBC 4.14 XMIL (4.2-5.4)
[2017-03-11] MEDS ORDERED: DILAUDID PCA VIAL IV PRN (08:00)
[2017-03-11] MEDS: LR 1,000 ML IV SCH (08:11)
[2017-03-11] MEDS: PRECARE PO SCH (08:11)
[2017-03-11] MEDS: PERIDEX MT SCH ×2 (08:11→20:13)
[2017-03-11] MEDS: PRINIVIL PO SCH (08:11)
[2017-03-11] MEDS: COLACE PO SCH ×2 (08:12→20:14)
[2017-03-11] MEDS: APRESOLINE PO SCH ×3 (08:12→17:42)
[2017-03-11] MEDS: MYLICON PO SCH ×4 (08:12→20:14)
[2017-03-11] MEDS: SYNTHROID PO SCH (08:12)
[2017-03-11] MEDS: NORCO-10 PO PRN ×2 (10:57→15:18)
[2017-03-11] MEDS ORDERED: D/C PCA XX ONE (13:00)
[2017-03-11] MEDS: MOTRIN PO PRN (17:42)
[2017-03-11] MEDS: PERCOCET-10 PO PRN ×2 (20:13→23:40)
[2017-03-12] MEDS: MOTRIN PO PRN (02:35)
[2017-03-12] MEDS: PERCOCET-10 PO PRN (03:44)
[2017-03-12 08:43] VITALS: BP 132/77
[2017-03-12] MEDS: PERIDEX MT SCH (08:43)
[2017-03-12] MEDS: SYNTHROID PO SCH (08:44)
[2017-03-12] MEDS: APRESOLINE PO SCH (08:44)
[2017-03-12] MEDS: PRECARE PO SCH (08:44)
[2017-03-12] MEDS: MYLICON PO SCH (08:44)
[2017-03-12] MEDS: COLACE PO SCH (08:44)
[2017-03-12] MEDS: PRINIVIL PO SCH (08:44)
--- NOTE | 2017-03-12 11:52 | PROGRESS NOTE ---
DATE: 03/12/2017 SUBJECTIVE: Patient with no complaints. States that she is hoping to be discharged home today. Denies any chest pain, palpitations. Denies any GI or issues. States her pain is in better control. OBJECTIVE: Vital Signs: Temperature 97, pulse 92, respiratory rate 18, BP 132/77, saturation 99% on room air. General: Patient is awake, alert, in no respiratory distress. Pleasant to talk with. Neck: Supple. CV: Regular rate. Chest: Clear. Extremities: Moves all extremities. No edema. ASSESSMENT: 1. Hypertension. Better control. Continue lisinopril 40, hydralazine 25 three times a day. She will follow up outpatient with her primary care provider to continue to evaluate her blood pressures and adjust as needed. 2. Hypothyroidism, stable. 3. Status post abdominal hysterectomy. PLAN: As noted above. No other changes were made. cc: MD Jarred Tang MD
--- NOTE | 2017-03-12 12:59 | PROGRESS NOTE ---
DATE: 03/11/2017 SUBJECTIVE: The patient notes that she is feeling better this morning. Her pain is much better controlled. Denies any chest pain, palpitations. Denies any fevers or chills. OBJECTIVE: Temperature 97 degrees, pulse 94, respiratory rate 18, BP 133/86, sat 100% on room air.General: Patient is awake, alert, pleasant to talk with. Neck: Supple. Lungs: She is in no respiratory distress. HEENT: Normocephalic, atraumatic. [place]. Neck: Supple. CV: Regular rate. Chest: Relatively clear. Abdomen: Soft. Extremities: Moves all extremities. Neurologic: No focal changes. Skin: Warm and dry. No rashes. LABS: Reviewed. Hemoglobin and hematocrit 11 and 30. ASSESSMENT: 1. Hypertension. Much better control with lisinopril 40, hydralazine 25 three times a day. 2. Hypothyroidism stable. PLAN: We will continue current medications as her blood pressures are better although they are still elevated. Certainly would not expect better control at this point with her in pain off and on from her recent surgery. We will continue to follow. Further orders as needed. cc: MD Jarred Tang MD
--- NOTE | 2017-03-12 14:15 | CONSULTATION ---
DATE OF CONSULTATION: 03/10/2017 REASON FOR CONSULTATION: Hypertension. PRIMARY CARE: JARRED Acosta, [facility] in [place]. HISTORY OF PRESENT ILLNESS: Patient is a 26-year-old female who has known uterine fibroids. She presented to Dr. Brown and subsequently was admitted to the hospital with pelvic pain and significant heavy bleeding. She was brought into the hospital to have an abdominal hysterectomy today. PAST MEDICAL HISTORY: 1. She is 1 para 1 that ended in secondary to leiomyomata. 2. Hypothyroidism, status post thyroidectomy. 3. Breast reduction surgery. 4. Known history of hypertension, although she was only taking lisinopril 10 mg at home. ALLERGIES: None. MEDICATIONS: Synthroid, labetalol, Percocet, lisinopril 10 mg, ibuprofen. FAMILY HISTORY: Noncontributory. REVIEW OF SYSTEMS: As noted above. Patient denies any chest pain, palpitations. Denies any fevers, chills. Denies any cough congestion currently. Denies any dysuria, frequency or urgency. Does have some abdominal pain as to be expected as she just recently had a surgery this morning. Denies any hematochezia, melena or hematemesis. SOCIAL HISTORY: Patient lives at home. She has a known history of smoking, although states that she has stopped some time ago. Does not drink alcohol. OBJECTIVE: Vital signs: Temperature 97, pulse 92, respiratory rate 18, blood pressure 170/102, saturation 100% on 2 L. General: Patient is awake, alert, oriented. She is currently in no real respiratory distress. Speech is regular. Memory is intact. Pleasant to talk with. Neck: Supple. CARDIOVASCULAR: Regular rate. Chest: Relatively clear. Abdomen: Soft, nondistended. Extremities: Moves all extremities. Neurologic: No focal neurological changes. Skin: Warm and dry. No rashes. LABORATORY: Hemoglobin and hematocrit 11 and 34. Sodium 132. Creatinine 0.4. ASSESSMENT: 1. Hypertension. Certainly pain can be contributing to this, but the patient notes that her pain currently is better controlled and her blood pressure is still up. She also notes that at home her blood pressures have been elevated, 140s, 150s when she checks at home, but she has not been following up regularly with her primary care provider. 2. Status post hysterectomy. 3. Hyperthyroidism. PLAN: Appreciate the consult. We will continue to follow along with you. We will watch her blood pressures tonight. Her lisinopril as been increased to 40. We will continue to follow this. We will add hydralazine as well. Further orders as needed. cc: MD Jarred Tang MD
--- NOTE | 2017-03-12 21:30 | DISCHARGE SUMMARY ---
ADMISSION DATE: 03/10/2017 DISCHARGE DATE: 03/12/2017 ADMITTING DIAGNOSIS: Symptomatic uterine leiomyomata. PRINCIPAL DIAGNOSIS: Symptomatic uterine leiomyomata. PRINCIPAL PROCEDURE: Total abdominal hysterectomy with lysis of adhesions and myomectomy. SUMMARY: Haile Sloan is a 26-year-old, 1, para 1, with symptomatic large uterine leiomyomata. After discussing options with the patient, she was admitted to the hospital and an exploratory laparotomy was performed. A large pedunculated fibroid was encountered. There were some scattered small fibroids also of the uterus. There were no intraoperative complications. Postoperatively the patient did well except for some hypertension and was treated both with the anesthesiologist and her family doctor, Dr. Sequeira. She had an admission hemoglobin and hematocrit of 11.5/34.4 with discharge hemoglobin and hematocrit being 11/33. On the day of discharge, cardiac and pulmonary examinations normal. Bowel and bladder function was normal. Incision was dry. She was having scant vaginal bleeding. We have a preliminary pathology report that shows proliferative endometrium and leiomyomata with degenerating changes. Cardiac and pulmonary examination is normal at this time. Her incisions are clean and dry. There is scant vaginal bleeding. There is normal bowel and bladder function. Ms. Sloan will be discharged today and I will see her back in the office in a week. Routine discharge instructions, activity limitations, and precautions were discussed. She will continue her current home medications. In addition, she was given prescriptions for Percocet 10 mg #30, Motrin 800 mg #30, and Ambien 10 mg #20. cc: Jarred Brown MD
== END 2017-03-12 10:15 | disposition home or self-care (01) ==
LOC: P.WC 03-10 05:45
PROVIDERS: ADMIT Obstetrics & Gynecology; ATTEND Obstetrics & Gynecology